=== PATIENT | female | born 1950 | race Caucasian/White ===

== ENCOUNTER 2021-02-26 09:04 | Outpatient (REF) | payer MEDICARE, SELFPAY ==
--- NOTE | 2021-02-26 12:27 | MHC.AU.ANO ---
Adult Audiological Evaluation Date of Visit: 02/26/21 Program Director Scouting Used: Not Applicable Reason for Appointment: Audiologic evaluation to determine hearing thresholds. Shana reports her is concerned her hearing ability is decreasing because she increases the volume of the television and is asking for speech to be repeated more often. She reports increased hearing difficulties when speaker is talking from a different room or when background noise is present. 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 Absent 1756-9559 Hz. Analysis: Present emissions suggest normal cochlear function Reduced/Absent emissions suggest cochlear dysfunction Results are consistent with degree and configuration of hearing loss Left Ear Results: Present 1600 & 2000 Hz. Absent 1427-3468 Hz. Analysis: Present emissions suggest normal cochlear function Reduced/Absent emissions suggest cochlear dysfunction Results are consistent with degree and configuration of hearing loss Hearing Evaluation: Transducer(s) Used: Insert Earphones Bone Conduction Method: Conventional Audiometry Stimuli Used: Pure Tones Right Ear: Description of Hearing: Borderline normal hearing thresholds 250-1000 Hz, dropping to a severe high frequency sensorineural hearing loss. Left Ear: Description of Hearing: Borderline normal hearing thresholds 250-1000 Hz, dropping to a moderately-severe high frequency sensorineural hearing loss. Speech Recognition Threshold (SRT): Method Used: Monitored Live Voice Stimuli Used: Spondee Words Right Ear: 25 dB HL Left Ear: 25 dB HL Word Discrimination: Method: Recorded Lists Word Lists Used: NU-6 Right Ear: 92% at 65 dB HL Left Ear: 96% at 65 dB HL QuickSIN: Binaural Quick SIN Test: 2 dB SNR Loss. This score falls within the normal range suggesting Shana does not experience any more difficulty understanding speech with increasing levels of background noise than expected in this controlled test environment. Interpretation of Results: With this type and degree of high frequency hearing loss, Shana is likely able to hear when people speak, but may not understand everything that is said. Discussed the role of attention with listening skills and how understanding speech with background noise is more difficult. Recommendations: Discussed and provided a handout regarding communications strategies to use to improve speech understanding. Discussed hearing aid benefits and limitations. Shana does not feel she is ready for amplification at this time. Audiological re-evaluation in one year. Will send a reminder card. If hearing difficulties increase before that time, an earlier appointment may be scheduled. Diagnosis: Primary Diagnosis: H90.3 Bilateral Sensorineural Hearing Loss Services Performed: Comprehensive Audiological Evaluation (CPT 95038) Diagnostic Otoacoustic Emissions (CPT 31693, 26+TC) Tympanometry (CPT 93812) Signature: Provider: Maggie Shoemaker, CCC-A
== END 2021-02-26 09:05 | disposition home or self-care (01) ==
LOC: HO.SH 09:04
PROVIDERS: Visit Provider Internal Medicine
DX: H91.93 Unspecified hearing loss, bilateral (principal)
CPT/HCPCS: 92557; 92567; 92588